=== PATIENT | male | born 1970 | race Caucasian/White ===

== ENCOUNTER 2022-02-24 00:41 | Inpatient (IN) | payer SELFPAY ==
[2022-02-24] MEDS ORDERED: Acetaminophen 325 MG TAB PO PRN (01:26)
[2022-02-24] MEDS ORDERED: Ondansetron PF 4 MG/2 ML Vial IVP PRN (01:26)
[2022-02-24] MEDS ORDERED: Morphine 4 MG/ML VIAL ONE (03:21)
[2022-02-24] MEDS ORDERED: HumaLOG 300 UNITS/3 ML VIAL SC PRN (05:17)
[2022-02-24] MEDS ORDERED: Dextrose 50% Abboject 50 ML SYRINGE SLOW IVP PRN (05:17)
[2022-02-24] MEDS ORDERED: Dextrose 5% in Water 1,000 ML IV PRN (05:17)
[2022-02-24] MEDS ORDERED: hydrALAZINE 20 MG/ML VIAL SLOW IVP PRN (05:29)
[2022-02-24 05:54] VITALS: BMI 25.8
[2022-02-24 06:15] LABS: #Basophils 0.1 thou/uL (0.0-0.2); #Eosinphils 0.1 thou/uL (0.0-0.7); #Neutrophils 11.7 thou/uL (1.40-6.50); %Basophils 0.5 % (0.0-1.0); %Eosinophils 0.9 % (0.0-10.0); %Lymphocytes 12.6 % (21.0-51.0); %Monocytes 12.4 % (0.0-10.0); %Neutrophils 73.6 % (42.0-75.0); Hemoglobin 13.2 g/dL (14.0-18.0); Mean Corpuscular HGB CONC 34.2 g/dL (32.0-36.0); Mean Corpuscular Hemoglobin 32.3 pg (27.0-31.0); Mean Corpuscular Volume 94.4 fL (78.0-98.0); Mean Platelet Volume 6.6 fL (7.4-10.4); Platelet Count 335 thou/uL (130-400); RBC Distribution Width 10.8 % (11.5-14.5); White Blood Cell (WBC) Count 15.8 thou/uL (4.8-10.8)
[2022-02-24 06:21] LABS: Hemoglobin A1c 7.1 % (4.0-6.0)
[2022-02-24 06:37] LABS: Anion Gap 13 mmol/L (10-20); BUN (Urea Nitrogen) 9 mg/dL (8.4-25.7); Calc. Creatinine Clearance 142 mL/min (70-130); Calcium 8.7 mg/dL (7.8-10.44); Carbon Dioxide 22 mmol/L (22-29); Chloride 101 mmol/L (98-107); Glucose 232 mg/dL (70-105); Potassium 3.6 mmol/L (3.5-5.1); Sodium 132 mmol/L (136-145)
[2022-02-24] MEDS: Enoxaparin Sodium 40 MG/0.4 ML SYRINGE SC SCH (08:34)
[2022-02-24] MEDS: HYDROcodone/Acetaminophen 7.5/325 mg Tablet PO PRN ×4 (08:36→20:31)
[2022-02-24] MEDS ORDERED: Losartan 25 MG TAB PO SCH ×2 (09:00)
[2022-02-24] MEDS ORDERED: Morphine 2 MG/ML VIAL SLOW IVP SCH (10:45)
[2022-02-24] MEDS: Cefepime 2 GM in Sodium Chloride 0.9% 100 ML IVPB SCH ×2 (10:48→21:29)
[2022-02-24] MEDS: Vancomycin HCl 1.5 GM in Sodium Chloride 0.9% 250 ML 300 ML IVPB SCH ×2 (11:52→22:56)
[2022-02-24 12:03] LABS: SARS-CoV-2 PCR by NAA Not Detected (NotDetected)
[2022-02-24] MEDS: HumaLOG 300 UNITS/3 ML VIAL SC PRN ×2 (12:27→16:20)
[2022-02-24] MEDS: Gabapentin 100 MG CAP PO SCH ×2 (15:03→20:34)
[2022-02-24] MEDS ORDERED: Labetalol HCl 100 MG/20 ML VIAL SLOW IVP PRN (18:47)
[2022-02-24] MEDS: Mupirocin 2% Ointment 22 GM Tube TOP SCH (21:29)
[2022-02-24] MEDS ORDERED: Labetalol HCl 100 MG/20 ML VIAL SLOW IVP SCH (22:30)
[2022-02-24] MEDS: Morphine 2 MG/ML VIAL SLOW IVP PRN (22:50)
[2022-02-25] MEDS: HYDROcodone/Acetaminophen 7.5/325 mg Tablet PO PRN ×5 (01:01→18:01)
[2022-02-25 05:59] LABS: #Basophils 0.1 thou/uL (0.0-0.2); #Eosinphils 0.2 thou/uL (0.0-0.7); #Lymphocytes 1.6 thou/uL (1.20-3.40); #Monocytes 1.2 thou/uL (0.11-0.59); #Neutrophils 6.5 thou/uL (1.40-6.50); %Basophils 1.1 % (0.0-1.0); %Eosinophils 1.7 % (0.0-10.0); %Lymphocytes 16.4 % (21.0-51.0); %Monocytes 12.3 % (0.0-10.0); %Neutrophils 68.5 % (42.0-75.0); Hemoglobin 14.4 g/dL (14.0-18.0); Mean Corpuscular HGB CONC 33.6 g/dL (32.0-36.0); Mean Corpuscular Hemoglobin 32.1 pg (27.0-31.0); Mean Corpuscular Volume 95.6 fL (78.0-98.0); Mean Platelet Volume 6.4 fL (7.4-10.4); Platelet Count 361 thou/uL (130-400); White Blood Cell (WBC) Count 9.5 thou/uL (4.8-10.8)
[2022-02-25 06:20] LABS: Anion Gap 12 mmol/L (10-20); BUN (Urea Nitrogen) 6 mg/dL (8.4-25.7); Calc. Creatinine Clearance 133 mL/min (70-130); Calcium 9.8 mg/dL (7.8-10.44); Carbon Dioxide 28 mmol/L (22-29); Chloride 100 mmol/L (98-107); Glucose 188 mg/dL (70-105); Potassium 3.8 mmol/L (3.5-5.1); Sodium 136 mmol/L (136-145)
[2022-02-25] MEDS: Morphine 2 MG/ML VIAL SLOW IVP PRN ×3 (07:03→15:07)
[2022-02-25] MEDS: Gabapentin 100 MG CAP PO SCH ×2 (08:20→15:07)
[2022-02-25] MEDS: Enoxaparin Sodium 40 MG/0.4 ML SYRINGE SC SCH (08:22)
[2022-02-25] MEDS: Mupirocin 2% Ointment 22 GM Tube TOP SCH (08:23)
[2022-02-25] MEDS: Cefepime 2 GM in Sodium Chloride 0.9% 100 ML IVPB SCH (08:25)
[2022-02-25] MEDS ORDERED: Amlodipine 10 MG TAB PO SCH (09:00)
[2022-02-25] MEDS ORDERED: Losartan 25 MG TAB PO SCH ×2 (09:00)
[2022-02-25 10:21] LABS: Vancomycin, Trough 6.9 ug/mL
[2022-02-25] MEDS ORDERED: Docusate 100 MG CAP PO PRN (10:22)
[2022-02-25] MEDS ORDERED: Polyethylene Glycol 3350 17 GM Packet PO PRN (10:22)
[2022-02-25] MEDS ORDERED: Docusate 100 MG CAP PO SCH (10:30)
[2022-02-25] MEDS ORDERED: Polyethylene Glycol 3350 17 GM Packet PO SCH (10:30)
[2022-02-25] MEDS ORDERED: Vancomycin HCl 1.5 GM in Sodium Chloride 0.9% 250 ML 300 ML IVPB SCH (12:00)
[2022-02-25] MEDS: Vancomycin HCl 1.5 GM in Sodium Chloride 0.9% 250 ML 300 ML IVPB SCH (12:41)
[2022-02-25] MEDS: HumaLOG 300 UNITS/3 ML VIAL SC PRN (12:55)
[2022-02-25 18:23] VITALS: BP 208/117; TEMP 98
[2022-02-25] MEDS ORDERED: Amoxicillin/Potassium Clav 875 MG TAB PO ONE (18:37)
[2022-02-25] MEDS ORDERED: Amoxicillin/Potassium Clav 875 MG TAB PO SCH (19:30)
[2022-02-25] MEDS ORDERED: Clindamycin 150 MG CAP PO SCH (19:30)
== END 2022-02-25 19:50 | disposition home or self-care (01) | DRG 872 ==
LOC: ERS 00:41 → T4-B 01:26 → OBSVTOIN 01:26
PROVIDERS: ADMIT Internal Medicine; ATTEND Internal Medicine
PROC: 099M0ZZ Drainage of Nasal Septum, Open Approach (ICD-10-PCS; principal; 2022-02-24)
DX: A41.9 Sepsis, unspecified organism (principal); L03.211 Cellulitis of face; I10 Essential (primary) hypertension; Z20.822 Contact with and (suspected) exposure to COVID-19; E11.65 Type 2 diabetes mellitus with hyperglycemia; J34.0 Abscess, furuncle and carbuncle of nose; F17.210 Nicotine dependence, cigarettes, uncomplicated; Z79.899 Other long term (current) drug therapy; Z98.890 Other specified postprocedural states
CPT/HCPCS: 36415; 36416; 80048; 80202; 83036; 85025; 87070; 87077; 87186; 96374; J0360; J0692; J1815; J2270; J3370; J3490; J7050; U0003; U0005

== ENCOUNTER 2022-05-02 13:08 | Emergency (ER) | payer SELFPAY ==
[2022-05-02 13:48] LABS: Bilirubin Negative (Negative); Blood, Urine Negative (Negative); Clarity Clear (Clear); Glucose, Urine (Dipstick) Normal (Negative); Ketone, Urine Negative (Negative); Leukocyte Negative Leu/uL (Negative); Nitrite Negative (Negative); Protein, Urine (Dipstick) 10 mg/dL (Neg-Trace); Specific Gravity, Urine 1.021 (1.002-1.036); Urobilinogen Normal mg/dL (Less than 2)
[2022-05-02 13:58] LABS: #Basophils 0.1 thou/uL (0.0-0.2); #Eosinphils 0.1 thou/uL (0.0-0.7); #Lymphocytes 1.9 thou/uL (1.20-3.40); #Monocytes 0.7 thou/uL (0.11-0.59); #Neutrophils 4.4 thou/uL (1.40-6.50); %Lymphocytes 26.5 % (21.0-51.0); %Monocytes 9.4 % (0.0-10.0); %Neutrophils 61.1 % (42.0-75.0); Hemoglobin 15.6 g/dL (14.0-18.0); Mean Corpuscular HGB CONC 34.4 g/dL (32.0-36.0); Mean Corpuscular Volume 93.2 fL (78.0-98.0); Mean Platelet Volume 6.7 fL (7.4-10.4); Platelet Count 289 thou/uL (130-400); RBC Distribution Width 11.7 % (11.5-14.5); Red Blood Cell (RBC) Count 4.89 mill/uL (4.70-6.10); White Blood Cell (WBC) Count 7.2 thou/uL (4.8-10.8)
[2022-05-02] MEDS ORDERED: Dexamethasone 4 mg/ml Vial ONE (14:19)
[2022-05-02] MEDS ORDERED: Diazepam 5 MG TAB ONE (14:19)
[2022-05-02 14:20] LABS: ALT (SGPT) 16 U/L (8-55); AST (SGOT) 11 U/L (5-34); Alkaline Phosphatase 97 U/L (40-110); Anion Gap 13 mmol/L (10-20); BUN (Urea Nitrogen) 19 mg/dL (8.4-25.7); Bilirubin, Total 0.5 mg/dL (0.2-1.2); Calc. Creatinine Clearance 0 mL/min (70-130); Calcium 9.7 mg/dL (7.8-10.44); Carbon Dioxide 25 mmol/L (22-29); Chloride 105 mmol/L (98-107); Estimated GFR 106; Globulin 2.8 g/dL (2.4-3.5); Glucose 169 mg/dL (70-105); Potassium 3.7 mmol/L (3.5-5.1); Protein, Total 6.8 g/dL (6.0-8.3); Sodium 139 mmol/L (136-145)
[2022-05-02] MEDS ORDERED: Ketorolac Tromethamine 30 MG/ML VIAL ONE (14:20)
== END 2022-05-02 15:03 | disposition home or self-care (01) ==
LOC: ERS 13:08
DX: G89.29 Other chronic pain (principal); M54.6 Pain in thoracic spine; I10 Essential (primary) hypertension; E11.9 Type 2 diabetes mellitus without complications; F17.220 Nicotine dependence, chewing tobacco, uncomplicated; Z79.899 Other long term (current) drug therapy; Z79.84 Long term (current) use of oral hypoglycemic drugs
CPT/HCPCS: 80053; 81003; 85025; 94760; 96374; 96375; J1100; J1885